=== PATIENT | female | born 1985 | race Caucasian/White ===

== ENCOUNTER → 2018-01-26 21:43 | Observation (INO) ==
[2018-01-26 20:51] LABS: Bilirubin,Urine Negative (Negative); Blood,Urine Negative (Negative); Clarity,Urine Clear (Clear); Color,Urine Yellow (Yellow); Glucose,Urine (UA) Normal (Normal); Ketones,Urine Negative (Negative); Leukocyte Esterase,Urine Negative (Negative); Nitrite,Urine Negative (Negative); PH,Urine 6.5 pH Units (5.0-8.0); Protein,Urine Trace mg/dL (Neg-Trace); Specific Gravity,Urine > 1.030 (1.010-1.025); Urobilinogen,Urine Normal (Normal)
[2018-01-26 20:53] LABS: Bacteria,Urine None Seen per hpf (None-Few); Hyaline Casts,Urine None Seen per lpf (None-Few); Squamous Epithelial Cell,Urine Many per lpf (None-Few); WBC,Urine 0-3 per hpf (0-3)
[2018-01-26 20:57] LABS: Amphetamine Screen,Urine Negative ng/mL (Cutoff=1000); Barbiturate Screen,Urine Negative ng/mL (Cutoff=200); Benzodiazepines Screen,Urine Negative ng/mL (Cutoff=200); Cannabinoid Screen,Urine Negative ng/mL (Cutoff = 50); Cocaine Screen,Urine Negative ng/mL (Cutoff= 300); Opiate Screen,Urine Negative ng/mL (Cutoff=300); Phencyclidine Screen,Urine Negative ng/mL (Cutoff=25)
--- NOTE | 2018-01-26 21:36 | OB/GYN Progress Note ---
Date of Encounter: 01/26/18 Time of Encounter: 21:31 - Assessment and Plan (1) 20 weeks gestation of Current Visit: Yes Status: Acute FHT reassuring (2) Round ligament pain Current Visit: Yes Status: Acute TTP over bilateral lower abdomen. Comfort measures discussed. (3) Back pain affecting in second trimester Current Visit: Yes Status: Acute Suspect musculoskeletal pain. Comfort measures discussed. Discharge home with precautions. (4) Heartburn during in second trimester Current Visit: Yes Status: Acute Subjective - Subjective Principal diagnosis: back pain, abdominal pain Interval history: 32 year-old presenting at 20w6d with EDC 06/09/18 per pt report. Pt reports she had one ultrasound several weeks ago at [facility]. SHe usually sees an OB in [place] but is [facility] in [facility] so she has missed several appointments. Today she c/o sharp bilateral lower abdominal pain that is intermittent, pain along spine and lower back, as well as pain just under her ribs on her left upper abdomen. She denies LOF, VB, contractions or cramping, fever, chills, urinary sx, vaginal irritation or any other complaints. She does report some intermittent heartburn. She has been able to feel movement. Antepartum ROS: no loss of fluid, no vaginal bleeding, no contractions Objective - Vital Signs Vital Signs: Intake and Output 01/26/18 01/26/18 01/26/18 07:59 15:59 23:59 Other: Weight 66.361 kg Patient Weight 01/26/18 23:59 Weight 66.361 kg - Exam FHR: auscultation normal Auscultation: bilateral: normal Abdomen: Present: soft, gravid Uterus: Present: other (TTP along bilateral LQ, no fundal or suprapubic tenderness) Comments: No CVAT, pt reports pain along spine and lower back. - Labs Labs: Abnormal lab results Ur Specific [place] > 1.030 (1.010-1.025) H 01/26/18 20:36 Urine Microscopic RBC 5-15 per hpf (0-3) H 01/26/18 20:36 Ur Squamous Epith Cells Many per lpf (None-Few) H 01/26/18 20:36
== END | disposition home or self-care (01) ==
LOC: 1NENULAB
PROVIDERS: ADMIT Registered Nurse; ATTEND Registered Nurse